=== PATIENT | female | born 1935 | race Caucasian/White ===

== ENCOUNTER 2018-04-06 08:29 | Observation (INO) ==
[2018-04-06] MEDS ORDERED: Sod Chloride 0.9% Inj 1,000 ML IV.SIG SCH (09:00)
--- NOTE | 2018-04-06 09:02 | ED ---
HPI General Chief Complaint: Chest Pain Stated Complaint: HEART PALP, NAUSEA WEAKNESS XTODAY Time Seen by Provider: 04/06/18 08:45 Source: patient Mode of arrival: ambulatory Limitations: no limitations History of Present Illness HPI narrative: Patient is an 82-year-old female with history of MVP, hypertension and hypothyroidism and GERD who presents to the emergency room via private vehicle for evaluation. Patient reports that for the past few weeks, she has not been feeling well; reports that she has just been having an upset stomach and has been feeling nauseous and has been having hot flashes. Patient reports that she woke up this morning to her alarm clock at 730, reports that her heart began to race and beat irregularly -she felt as if she was having palpitations. Reports that all of a sudden she felt diaphoretic and had an upset stomach. Patient reports that over the past few weeks, this has happened but resolved after she got up and started her day. Patient reports that she got up today and did not feel any better and became concerned. Patient denies any chest pain at this time, reports that she just does not feel right and feels generalized weakness. Related Data Home Medications Medication Instructions Recorded Confirmed atenolol 50 mg PO BID 04/06/18 04/06/18 levothyroxine [Synthroid] 100 mcg PO DAILY 04/06/18 04/06/18 omeprazole magnesium [Prilosec] 10 mg PO DAILY 04/06/18 04/06/18 Allergies Allergy/AdvReac Type Severity Reaction Status Date / Time sulfamethoxazole Allergy Severe "DIZZINESS" Unverified 04/06/18 08:50 trimethoprim Allergy Severe "DIZZINESS" Unverified 04/06/18 08:50 Review of Systems ROS: all other systems reviewed are negative PMFSH History History Provided By: Patient Medical History Medical History GERD (gastroesophageal reflux disease) (Acute) Hypertension (Acute) Hypothyroid (Acute) Mitral valve prolapse (Acute) Surgical History Surgical History Hx of exploratory laparotomy (Acute) Social History Social History Substance History: No History of Abuse and Unable to Obtain Second Hand Smoke Exposure: No Smoking Status: Never smoker How Often Do You Have a Drink Containing Alcohol: Never Recent Travel in [facility] within the Last 8 Weeks: No Recent Out of Country Travel within the Last 8 Weeks: No Exam Narrative Exam Narrative: GENERAL: Mild distress SKIN: Focused skin assessment warm/dry. HEAD: Atraumatic. Normocephalic. EYES: Pupils equal and round. No scleral icterus. No injection or drainage. ENT: No nasal bleeding or discharge. Mucous membranes pink and moist. NECK: Trachea midline. No JVD. CARDIOVASCULAR: Regular rate and rhythm. No murmur appreciated. RESPIRATORY: No accessory muscle use. Clear to auscultation. Breath sounds equal bilaterally. GASTROINTESTINAL: Abdomen soft, non-tender, nondistended. Hepatic and splenic margins not palpable. MUSCULOSKELETAL: No obvious deformities. No clubbing. No cyanosis. No edema. NEUROLOGICAL: Awake and alert. No obvious cranial nerve deficits. Motor grossly within normal limits. Normal speech. CN 2- 12 grossly intact with no neurological deficits PSYCHIATRIC: Anxious mood and affect; insight and judgment normal. Course Initial Documented Vital Signs Temperature 98.6 F 04/06/18 08:50 Pulse Rate 78 04/06/18 08:50 Respiratory Rate 18 04/06/18 08:50 Blood Pressure 191/90 H 04/06/18 08:50 Last Documented Vital Signs Temperature 98.6 F 04/06/18 08:50 Pulse Rate 67 04/06/18 09:04 Respiratory Rate 18 04/06/18 08:50 Blood Pressure 191/90 H 04/06/18 08:50 Pulse Oximetry 97 04/06/18 09:04 Medical Decision Making MDM Narrative Medical decision making narrative: During the course of the patients emergency department visit, the patients history, examination, and differential diagnosis were reviewed with the patient. The patient was placed on a career development director with oximetry and frequent blood pressure monitoring. The patient had an IV access obtained and blood work sent for analysis. The patient was initially provided aspirin as well as IVF as zofran The patients laboratory studies were reviewed Plan to admit to the chest pain unit for observation given her symptoms. 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 Case reviewed with Dr. Camacho who accepts pt to service Medical Screen Exam Complete: Yes Emergency Medical Condition: Yes Differential Diagnosis Differential Diagnosis: ACS, arrhythmia, unstable angina, electrolyte abnormality, gastritis, gastroenteritis Medical Records Medical records reviewed: Yes I reviewed the patient's medical records. Lab Data Result diagrams: 04/06/18 08:48 04/06/18 08:48 Lab Results 04/06/18 04/06/18 04/06/18 Range/Units 08:48 08:48 08:48 CBC w Diff Auto diff final WBC 4.9 (4.0-11.0) th/mm3 RBC 4.57 (4.00-5.30) mil/mm3 Hgb 14.6 (11.6-15.3) gm/dL Hct 42.8 (35.0-46.0) % MCV 93.7 (80.0-100.0) fL MCH 32.0 (27.0-34.0) pg MCHC 34.2 (32.0-36.0) % RDW 13.0 (11.6-17.2) % Plt Count 222 (150-450) th/mm3 MPV 8.5 (7.0-11.0) fL Neut % (Auto) 45.8 (16.0-70.0) % Lymph % (Auto) 41.2 (9.0-44.0) % [place] % (Auto) 8.3 H (0.0-8.0) % Eos % (Auto) 4.1 H (0.0-4.0) % Baso % (Auto) 0.6 (0.0-2.0) % Neut # (Auto) 2.3 (1.8-7.7) th/mm3 Lymph # (Auto) 2.0 (1.0-4.8) th/mm3 [place] # (Auto) 0.4 (0.0-0.9) th/mm3 Eos # (Auto) 0.2 (0.0-0.4) th/mm3 Baso # (Auto) 0.0 (0.0-0.2) th/mm3 WBC Differential . Differential Comment . PT 10.4 (9.8-11.6) sec INR 1.0 Ratio APTT 24.0 L (24.3-30.1) sec Sodium (136-145) meq/L Potassium (3.5-5.1) meq/L Chloride (98-107) meq/L Carbon Dioxide (21.0-32.0) meq/L Anion Gap (5-15) meq/L BUN (7-18) mg/dL Creatinine (0.50-1.00) mg/dL Estimated GFR (>89) mL/min Random Glucose (74-106) mg/dL Calcium (8.5-10.1) mg/dL Magnesium (1.5-2.5) mg/dL Total Bilirubin (0.2-1.0) mg/dL AST (15-37) U/L ALT (10-53) U/L Alkaline Phosphatase (45-117) U/L Total Creatine Kinase (26-192) U/L Troponin I (0.02-0.05) ng/mL B-Natriuretic Peptide 91 (0-100) pg/mL Total Protein (6.4-8.2) g/dL Albumin (3.4-5.0) g/dL Urine Color (Yellw/Straw) Urine Clarity (Clear) Urine pH (5.0-8.5) Ur Specific [place] (1.002-1.035) Urine Protein (Neg-Trace) mg/dL Urine Glucose (UA) (Negative) mg/dL Urine Ketones (Negative) mg/dL Urine Occult Blood (Negative) Urine Nitrate (Negative) Urine Bilirubin (Negative) Urine Urobilinogen (Less than 2) mg/dL Ur Leukocyte Esterase (Negative) Ur Squamous Epith Cells (0-5) /hpf Micro UA Comment Ur Microscopic Review Urine Culture Comments 04/06/18 04/06/18 Range/Units 08:48 10:05 CBC w Diff WBC (4.0-11.0) th/mm3 RBC (4.00-5.30) mil/mm3 Hgb (11.6-15.3) gm/dL Hct (35.0-46.0) % MCV (80.0-100.0) fL MCH (27.0-34.0) pg MCHC (32.0-36.0) % RDW (11.6-17.2) % Plt Count (150-450) th/mm3 MPV (7.0-11.0) fL Neut % (Auto) (16.0-70.0) % Lymph % (Auto) (9.0-44.0) % [place] % (Auto) (0.0-8.0) % Eos % (Auto) (0.0-4.0) % Baso % (Auto) (0.0-2.0) % Neut # (Auto) (1.8-7.7) th/mm3 Lymph # (Auto) (1.0-4.8) th/mm3 [place] # (Auto) (0.0-0.9) th/mm3 Eos # (Auto) (0.0-0.4) th/mm3 Baso # (Auto) (0.0-0.2) th/mm3 WBC Differential Differential Comment PT (9.8-11.6) sec INR Ratio APTT (24.3-30.1) sec Sodium 140 (136-145) meq/L Potassium 3.6 (3.5-5.1) meq/L Chloride 106 (98-107) meq/L Carbon Dioxide 25.8 (21.0-32.0) meq/L Anion Gap 8 (5-15) meq/L BUN 17 (7-18) mg/dL Creatinine 0.95 (0.50-1.00) mg/dL Estimated GFR 56 L (>89) mL/min Random Glucose 99 (74-106) mg/dL Calcium 8.2 L (8.5-10.1) mg/dL Magnesium 2.3 (1.5-2.5) mg/dL Total Bilirubin 0.6 (0.2-1.0) mg/dL AST 17 (15-37) U/L ALT 19 (10-53) U/L Alkaline Phosphatase 74 (45-117) U/L Total Creatine Kinase 61 (26-192) U/L Troponin I Less than 0.02 L (0.02-0.05) ng/mL B-Natriuretic Peptide (0-100) pg/mL Total Protein 7.4 (6.4-8.2) g/dL Albumin 3.7 (3.4-5.0) g/dL Urine Color Yellow (Yellw/Straw) Urine Clarity Clear (Clear) Urine pH 7.5 (5.0-8.5) Ur Specific [place] Less/equal 1.005 (1.002-1.035) Urine Protein Negative (Neg-Trace) mg/dL Urine Glucose (UA) Negative (Negative) mg/dL Urine Ketones Negative (Negative) mg/dL Urine Occult Blood Negative (Negative) Urine Nitrate Negative (Negative) Urine Bilirubin Negative (Negative) Urine Urobilinogen 0.2 (Less than 2) mg/dL Ur Leukocyte Esterase Negative (Negative) Ur Squamous Epith Cells 0-5 (0-5) /hpf Micro UA Comment Culture not ind Ur Microscopic Review Microscopic reviewed Urine Culture Comments Culture not ind Imaging Data Radiologist's impression: Chest X-Ray 04/06/18 08:51 CONCLUSION: 1. No acute abnormality or significant interval change. ECG Data EKG Prior to Arrival: No Attestation: I personally reviewed and interpreted this ECG as follows: Prior ECG tracings: available for review Interpretation: EKG at 0847: NSR at 80bpm, qt/qtc: 368/404, st seg depression V4 -V6, no reciprical changes Discharge Plan Discharge Disposition Patient Disposition: 30 Still Patient Discharge Condition Condition: Stable Discharge Details Diagnosis: Chest pain Physicians Team ED Provider: Kathy Friedman Primary Care Provider: Fidencio Peña Rxs /Orders / Referrals /Forms Prescriptions: No Action levothyroxine [Synthroid] 100 mcg Tablet 100 mcg PO DAILY RF: 0 atenolol 50 mg Tablet 50 mg PO BID RF: 0 omeprazole magnesium [Prilosec] 10 mg Susp,Delayed Release For Recon 10 mg PO DAILY RF: 0 Discharge Instructions Patient Printed Instructions: Chest Pain (ED) Status ED Status: With Doctor
[2018-04-06 09:29] LABS: Baso % (Auto) 0.6 % (0.0-2.0); Eos # (Auto) 0.2 th/mm3 (0.0-0.4); Eos % (Auto) 4.1 % (0.0-4.0); Hematocrit 42.8 % (35.0-46.0); Hemoglobin 14.6 gm/dL (11.6-15.3); Lymph % (Auto) 41.2 % (9.0-44.0); Mean Corpuscular HGB Conc 34.2 % (32.0-36.0); Mean Corpuscular Volume 93.7 fL (80.0-100.0); Mean Platelet Volume 8.5 fL (7.0-11.0); Mono # (Auto) 0.4 th/mm3 (0.0-0.9); Mono % (Auto) 8.3 % (0.0-8.0); Neut # (Auto) 2.3 th/mm3 (1.8-7.7); Neut % (Auto) 45.8 % (16.0-70.0); Platelet Count 222 th/mm3 (150-450); Red Blood Count 4.57 mil/mm3 (4.00-5.30); White Blood Count 4.9 th/mm3 (4.0-11.0)
--- NOTE | 2018-04-06 09:35 | XR ---
EXAM DATE: 04/06/2018 9:32 AM EDT AGE/SEX: 82 years / Female INDICATIONS: Palpatations, nausea and weakness. CLINICAL DATA: This is the patient's initial encounter. Patient reports that signs and symptoms have been present for 1 day and indicates a pain score of 0/10. MEDICAL/SURGICAL HISTORY: None. . cardiac cath COMPARISON: [facility], CHEST PA & LAT, 10/25/2014. . FINDINGS: Mild diffuse interstitial prominence and senescent changes without new focal pleural or parenchymal o pacities. The cardiomediastinal contours are unremarkable. Osseous structures are intact. CONCLUSION: 1. No acute abnormality or significant interval change. Electronically signed by: Bernard Combs MD 04/06/2018 9:33 AM EDT
[2018-04-06 09:36] LABS: Prothrombin Time 10.4 sec (9.8-11.6)
[2018-04-06 09:44] LABS: Calcium 8.2 mg/dL (8.5-10.1)
[2018-04-06 09:45] LABS: Albumin 3.7 g/dL (3.4-5.0); Carbon Dioxide 25.8 meq/L (21.0-32.0); Glucose,Random 99 mg/dL (74-106); Magnesium 2.3 mg/dL (1.5-2.5)
[2018-04-06 09:48] LABS: Glomerular Filtration Rate 56 mL/min (>89)
[2018-04-06 09:50] LABS: Total Protein 7.4 g/dL (6.4-8.2)
[2018-04-06 09:51] LABS: Alkaline Phosphatase 74 U/L (45-117)
[2018-04-06 09:54] LABS: Anion Gap 8 meq/L (5-15); Chloride 106 meq/L (98-107); Potassium 3.6 meq/L (3.5-5.1); Sodium 140 meq/L (136-145)
[2018-04-06 09:55] LABS: Creatine Kinase 61 U/L (26-192)
[2018-04-06 09:59] LABS: Alanine Aminotransferase 19 U/L (10-53)
[2018-04-06 10:01] LABS: Blood Urea Nitrogen 17 mg/dL (7-18)
[2018-04-06 10:03] LABS: Aspartate Aminotransferase 17 U/L (15-37)
[2018-04-06 10:15] LABS: Bilirubin,Urine Negative (Negative); Clarity,Urine Clear (Clear); Color,Urine Yellow (Yellw/Straw); Glucose,Urine (UA) Negative (Negative); Leukocyte Esterase,Urine Negative (Negative); Nitrite,Urine Negative (Negative); PH,Urine 7.5 (5.0-8.5); Specific Gravity,Urine Less/Equal 1.005 (1.002-1.035); Urobilinogen,Urine 0.2 mg/dL (Less than 2)
[2018-04-06 10:26] LABS: Squamous Epithelial Cell,Urine 0-5 /hpf (0-5)
[2018-04-06] MEDS ORDERED: Acetaminophen 500 MG Tablet PO PRN (11:44)
[2018-04-06] MEDS ORDERED: Morphine Inj 4 MG/ML Vial IV.PUSH PRN (11:44)
[2018-04-06] MEDS ORDERED: Sod Chloride 0.9% Inj 1,000 ML IV.CONT SCH (11:45)
--- NOTE | 2018-04-06 12:15 | P.HP ---
History of Present Illness Primary Care Physician: Fidencio Peña DO Chief Complaint: Chest pain History of Present Illness: This is a 82-year-old female with a history of MVP, hypertension, hypothyroidism , GERD and anxiety. She presents to the emergency department because of chest pain. Per the past several weeks he has not been feeling good with spells of weakness and nausea. This morning she had another episode with nausea, diaphoresis, palpitations and indigestion which she described as fleeting mild retrosternal pain that lasted for 2 seconds. She has been very anxious and admits to not taking her Prilosec regularly. Because of her cardiac risk factors, she has been hospitalized for further evaluation and treatment. Chest x-ray independently reviewed by me with no acute cardiopulmonary disease. EKG independently reviewed by me with sinus rhythm with mild ST depression to V4 to V6. Patient denies history of coronary artery disease, DVT and PE. No leg pain and swelling. Family history of NC father at a young age of 4747 years old. All other systems reviewed negative Review of Systems All other systems reviewed negative except as stated in HPI PMFSH - History History Provided By: Patient - Medical History Medical History: Medical History (Last Reviewed 04/06/18 @ 12:21 by Alfie Camacho MD) GERD (gastroesophageal reflux disease) Hypertension Hypothyroid Mitral valve prolapse - Surgical History Surgical History: Surgical History (Last Reviewed 04/06/18 @ 12:21 by Alfie Camacho MD) Hx of exploratory laparotomy - Family History Family History: Family History (Last Updated 04/06/18 @ 12:21 by Alfie Camacho MD) Other Family history of acute myocardial infarction - Tobacco History Second Hand Smoke Exposure: No Smoking Status: Never smoker - Alcohol History How Often Do You Have a Drink Containing Alcohol: Never - Substance Use History Substance History: No History of Abuse - Travel History Recent Travel in the [place] Within the Last 8 Weeks: No Recent Travel Out of the Country Within the Last 8 Weeks: No - Immunization History Tetanus Immunization: >5 Years Hx Influenza Vaccine This Season: Yes Medications and Allergies Active Medications: Active Medications Acetaminophen (Tylenol) 500 mg PO Q4H PRN PRN Reason: HEADACHE Hydrocodone Bitart/Acetaminophen ([place] 7.5/325) 1 tab PO Q4H PRN PRN Reason: PAIN SCALE 1 TO 7 Aspirin (Aspirin) 325 mg PO DAILY CAT Clonidine HCl (Catapres) 0.1 mg PO Q6H PRN PRN Reason: SEE LABEL COMMENTS Enalaprilat (Vasotec Inj) 1.25 mg IV.PUSH Q6H PRN PRN Reason: SEE LABEL COMMENTS Heparin Sodium (Porcine) (Heparin Inj) 5,000 units SQ Q12HR [facility] Hydroxyzine Pamoate (Vistaril) 25 mg PO Q8H PRN PRN Reason: ANXIETY AND/OR AGITATION Sodium Chloride (Ns Inj) 1,000 mls @ 0 mls/hr IV.SIG BOLUS CAT Last Infusion: 04/06/18 10:02 Dose: Infused Sodium Chloride (Ns Inj) 1,000 mls @ 60 mls/hr IV.CONT .[id number] [facility] Levothyroxine Sodium (Synthroid) 100 mcg PO DAILY@0600 CAT Morphine Sulfate (Morphine Inj) 2 mg IV.PUSH Q4H PRN PRN Reason: PAIN SCALE 8 TO 10 Nitroglycerin (Nitrostat Sl) 0.4 mg SL Q5M PRN PRN Reason: CHEST PAIN Non-Formulary Medication (Omeprazole Magnesium [Prilosec]) 10 mg PO DAILY [facility] Ondansetron HCl (Zofran Inj) 4 mg IV.PUSH Q6H PRN PRN Reason: NAUSEA Sodium Chloride (Ns Flush) 2 ml IV.FLUSH BID CAT Sodium Chloride (Ns Flush) 2 ml IV.FLUSH PRN PRN PRN Reason: FLUSH AFTER USING IV ACCESS Allergies Allergy/AdvReac Type Severity Reaction Status Date / Time sulfamethoxazole Allergy Severe "DIZZINESS" Unverified 04/06/18 08:50 trimethoprim Allergy Severe "DIZZINESS" Unverified 04/06/18 08:50 Home Medications Medication Instructions Recorded Confirmed Type atenolol 50 mg PO BID 04/06/18 04/06/18 History levothyroxine [Synthroid] 100 mcg PO DAILY 04/06/18 04/06/18 History omeprazole magnesium [Prilosec] 10 mg PO DAILY 04/06/18 04/06/18 History Exam Vital signs: Vital Signs 04/06/18 08:50 04/06/18 09:04 04/06/18 09:30 Temperature 98.6 F Pulse Rate 78 67 74 Respiratory Rate 18 16 Blood Pressure 191/90 H 177/85 H Pulse Oximetry 97 98 04/06/18 11:25 Temperature Pulse Rate 78 Respiratory Rate 16 Blood Pressure 174/83 H Pulse Oximetry 98 Intake & Output 04/05/18 04/06/18 04/06/18 18:59 06:59 18:59 Intake Total 1000 / 1000 Balance 1000 / 1000 Weight 60.6 kg Intake: IV 1000 / 1000 NS Inj 1,000 ML @ Wide Open IV. 1000 / 1000 SIG BOLUS CAT Rx#:[id number] Other: Date of Last Bowel Movement 04/06/18 Weight On Admission 61 kg Narrative: GENERAL: Well-developed, well-nourished in no distress. She appears anxious SKIN: Warm and dry. HEAD: Atraumatic. Normocephalic. EYES: Pupils equal and round. No scleral icterus. No injection or drainage. ENT: No nasal bleeding or discharge. Mucous membranes pink and moist. NECK: Trachea midline. No JVD. CARDIOVASCULAR: Regular rate and rhythm. Chest wall tenderness RESPIRATORY: No accessory muscle use. Clear to auscultation. Breath sounds equal bilaterally. GASTROINTESTINAL: Abdomen soft, non-tender, nondistended. MUSCULOSKELETAL: Extremities without clubbing, cyanosis, or edema. No obvious deformities. NEUROLOGICAL: Awake and alert. No obvious cranial nerve deficits. Motor grossly within normal limits. Five out of 5 muscle strength in the arms and legs. Normal speech. PSYCHIATRIC: Appropriate mood and affect; insight and judgment normal. Results - Labs CBC & Chem 7: 04/06/18 08:48 04/06/18 08:48 Labs: Laboratory Results - last 24 hr 04/06/18 04/06/18 04/06/18 08:48 08:48 08:48 CBC w Diff Auto diff final WBC 4.9 RBC 4.57 Hgb 14.6 Hct 42.8 MCV 93.7 MCH 32.0 MCHC 34.2 RDW 13.0 Plt Count 222 MPV 8.5 Neut % (Auto) 45.8 Lymph % (Auto) 41.2 [place] % (Auto) 8.3 H Eos % (Auto) 4.1 H Baso % (Auto) 0.6 Neut # (Auto) 2.3 Lymph # (Auto) 2.0 [place] # (Auto) 0.4 Eos # (Auto) 0.2 Baso # (Auto) 0.0 WBC Differential . Differential Comment . PT 10.4 INR 1.0 APTT 24.0 L Sodium Potassium Chloride Carbon Dioxide Anion Gap BUN Creatinine Estimated GFR Random Glucose Calcium Magnesium Total Bilirubin AST ALT Alkaline Phosphatase Total Creatine Kinase Troponin I B-Natriuretic Peptide 91 Total Protein Albumin Urine Color Urine Clarity Urine pH Ur Specific [place] Urine Protein Urine Glucose (UA) Urine Ketones Urine Occult Blood Urine Nitrate Urine Bilirubin Urine Urobilinogen Ur Leukocyte Esterase Ur Squamous Epith Cells Micro UA Comment Ur Microscopic Review Urine Culture Comments 04/06/18 04/06/18 08:48 10:05 CBC w Diff WBC RBC Hgb Hct MCV MCH MCHC RDW Plt Count MPV Neut % (Auto) Lymph % (Auto) [place] % (Auto) Eos % (Auto) Baso % (Auto) Neut # (Auto) Lymph # (Auto) [place] # (Auto) Eos # (Auto) Baso # (Auto) WBC Differential Differential Comment PT INR APTT Sodium 140 Potassium 3.6 Chloride 106 Carbon Dioxide 25.8 Anion Gap 8 BUN 17 Creatinine 0.95 Estimated GFR 56 L Random Glucose 99 Calcium 8.2 L Magnesium 2.3 Total Bilirubin 0.6 AST 17 ALT 19 Alkaline Phosphatase 74 Total Creatine Kinase 61 Troponin I Less than 0.02 L B-Natriuretic Peptide Total Protein 7.4 Albumin 3.7 Urine Color Yellow Urine Clarity Clear Urine pH 7.5 Ur Specific [place] Less/equal 1.005 Urine Protein Negative Urine Glucose (UA) Negative Urine Ketones Negative Urine Occult Blood Negative Urine Nitrate Negative Urine Bilirubin Negative Urine Urobilinogen 0.2 Ur Leukocyte Esterase Negative Ur Squamous Epith Cells 0-5 Micro UA Comment Culture not ind Ur Microscopic Review Microscopic reviewed Urine Culture Comments Culture not ind - Imaging Impressions Chest X-Ray 04/06/18 08:51 CONCLUSION: 1. No acute abnormality or significant interval change. Caprini VTE Risk Assessment Caprini VTE Risk Assessment: Moderate/High Risk (score >= 2) Caprini Risk Assessment Model: Point Value = 1 Point Value = 2 Point Value = 3 Point Value = 5 Age 41-60 Minor surgery BMI > 25 kg/m2 Swollen legs Varicose veins or History of unexplained or recurrent spontaneous Oral contraceptives or hormone replacement Sepsis (< 1 month) Serious lung disease, including pneumonia (< 1 month) Abnormal pulmonary function Acute myocardial infarction Congestive heart failure (< 1 month) History of inflammatory bowel disease Medical patient at bed rest Age 61-74 Arthroscopic surgery Major open surgery (> 45 min) Laparoscopic surgery (> 45 min) Malignancy Confined to bed (> 72 hours) Immobilizing plaster cast Central venous access Age >= 75 History of VTE Family history of VTE Factor V Leiden Prothrombin [id number] Lupus anticoagulant Anticardiolipin antibodies Elevated serum homocysteine Heparin-induced thrombocytopenia Other congenital or acquired thrombophilia Stroke (< 1 month) Elective arthroplasty Hip, pelvis, or leg fracture Acute spinal cord injury (< 1 month) Prophylaxis Regimen: Total Risk Factor Score Risk Level Prophylaxis Regimen 0-1 Low Early ambulation 2 Moderate Order ONE of the following: *Sequential Compression Device (SCD) *Heparin 5000 units SQ BID 3-4 Higher Order ONE of the following medications: *Heparin 5000 units SQ TID *Enoxaparin/Lovenox 40 mg SQ daily (WT < 150 kg, CrCl > 30 mL/min) *Enoxaparin/Lovenox 30 mg SQ daily (WT < 150 kg, CrCl > 10-29 mL/min) *Enoxaparin/Lovenox 30 mg SQ BID (WT < 150 kg, CrCl > 30 mL/min) AND/OR *Sequential Compression Device (SCD) 5 or more Highest Order ONE of the following medications: *Heparin 5000 units SQ TID (Preferred with Epidurals) *Enoxaparin/Lovenox 40 mg SQ daily (WT < 150 kg, CrCl > 30 mL/min) *Enoxaparin/Lovenox 30 mg SQ daily (WT < 150 kg, CrCl > 10-29 mL/min) *Enoxaparin/Lovenox 30 mg SQ BID (WT < 150 kg, CrCl > 30 mL/min) AND *Sequential Compression Device (SCD) Assessment and Plan - Plan This is a 82-year-old female with a history of MVP, hypertension, hypothyroidism , GERD and anxiety. She presents complaining of chest pain, nausea, palpitations and diaphoresis. Chest x-ray with no acute cardiopulmonary disease. EKG independently reviewed by me with sinus rhythm with mild ST depression to V4 to V6. Chest pain. Trend cardiac enzymes continue aspirin and sublingual nitroglycerin. Obtain lipase. Restart PPI. If patient rules out for NC with proceed with Lexiscan. Anxiety. Vistaril as needed Uncontrolled hypertension secondary to anxiety. As needed Vasotec and clonidine. Will monitor DVT prophylaxis with SCD and subcu heparin Discharge Planning: Discharge patient to home if stress test negative Condition on discharge: Improved Regular Diet as tolerated Ad Marie activity no driving Rx written: Javid Follow-up with primary care physician
[2018-04-06 12:44] LABS: Creatine Kinase 59 U/L (26-192)
[2018-04-06] MEDS ORDERED: Heparin - SQ 10,000 UNITS/ML Vial SQ SCH (13:00)
[2018-04-06] MEDS ORDERED: Pantoprazole Sodium 20 MG DR Tablet PO SCH (13:00)
[2018-04-06 13:18] VITALS: RESP 20
[2018-04-06] MEDS ORDERED: Regadenoson Inj 0.4 MG/5 ML Syringe IV.PUSH ONE (14:38)
--- NOTE | 2018-04-06 15:32 | NM ---
EXAM DATE: 04/06/2018 3:26 PM EDT AGE/SEX: 82 years / Female INDICATIONS:Abnormal EKG. Angina Susbternal chest pain with nausea and diaphoresis. CLINICAL DATA: This is the patient's initial encounter. Patient reports that signs and symptoms have been present for 1 day and indicates a pain score of 0/10. MEDICAL/SURGICAL HISTORY: Hypertension. Gastroesophageal reflux disease. None. COMPARISON: No prior exams available for comparison. DOSE: 8.5 mCi Tc 99m Myoview at rest 25.4 mCi [id number] at stress 0.4 mg Lexiscan STRESS SYMPTOMS: Dyspnea and headache. EJECTION FRACTION: >70 % TECHNIQUE: The patient underwent pharmacologic stress with infusion of prescribed dose. Continuous ECG tracing was monitored during stress. Gated SPECT imaging was performed after stress and conventi onal SPECT imaging was performed at rest. The examination was performed on a SPECT/CT scanner, both attenuation and non-corrected datasets were reviewed. FINDINGS: Distribution: The maximum perfused segment at stress is in the anterolateral wall. Perfusion Study: The pattern of perfusion at stress is within normal limits. Gated Study: There are intact wall motion and wall thickening without hypokinetic or dyskinetic segm ents. The ejection fraction is calculated at >70%. RISK CATEGORY: Low (<1% Annual Motality Rate) CONCLUSION: 1. Negative examination. Normal perfusion at stress Electronically signed by: Gera Abbasi MD 04/06/2018 3:31 PM EDT
--- NOTE | 2018-04-06 17:37 | ECG ---
Date Performed: 04/06/2018 Time Performed: 12:36:36 PTAGE: 82 years EKG: Sinus rhythm WITH SINUS ARRHYTHMIA NORMAL ECG PREVIOUS TRACING : 04/06/2018 08.47 DOCTOR: Casie Weaver Interpretating Date/Time 04/06/2018 17:36:12
--- NOTE | 2018-04-06 17:44 | ECG ---
Date Performed: 04/06/2018 Time Performed: 08:47:53 PTAGE: 82 years EKG: Sinus rhythm MINIMAL ST DEPRESSION BORDERLINE ECG PREVIOUS TRACING : 03/02/2013 12.26 DOCTOR: Casie Weaver Interpretating Date/Time 04/06/2018 17:39:06
[2018-04-06 18:03] VITALS: BP 135/60; PULSE 75; TEMP 98.2; O2SAT 93
[2018-04-07] MEDS ORDERED: Levothyroxine 100 MCG Tablet PO SCH (06:00)
[2018-04-07] MEDS ORDERED: Aspirin 325 MG Tablet PO SCH (09:00)
== END 2018-04-06 17:36 | disposition home or self-care (01) ==
LOC: PHEDA 08:29 → PHED 08:29 → PH3 11:41
PROVIDERS: ADMIT Internal Medicine; ATTEND Internal Medicine
DX: Z82.49 Family history of ischemic heart disease and other diseases of the circulatory system; Z88.2 Allergy status to sulfonamides; K21.9 Gastro-esophageal reflux disease without esophagitis; F41.9 Anxiety disorder, unspecified; I10 Essential (primary) hypertension; R07.89 Other chest pain; R00.2 Palpitations; Z88.1 Allergy status to other antibiotic agents; R94.31 Abnormal electrocardiogram [ECG] [EKG]; E03.9 Hypothyroidism, unspecified